=== PATIENT | male | born 1995 | race Caucasian/White ===

== ENCOUNTER 2019-05-03 01:23 | Emergency (ER) | payer SELFPAY ==
[~2019-05-03] VITALS: Ht 172.7 cm; Wt 70.3 kg
--- NOTE | 2019-05-03 01:23 | NUR ---
PT BIB [facility], PREBOOK. TAKEN TO CHAIR E
[2019-05-03 01:26] VITALS: BP 132/58
--- NOTE | 2019-05-03 01:28 | NUR ---
Dr. Zelaya examining patient.
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
[2019-05-03 01:38] VITALS: BP 132/58
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
== END 2019-05-03 01:38 ==
LOC: MED 01:23
DX: Z04.1 Encounter for examination and observation following transport accident (principal)
CPT/HCPCS: 99283